=== PATIENT | female | born 1960 | race American Indian/Alaskan Native ===

== ENCOUNTER 2019-08-26 19:50 | Emergency (ER) | payer OTHER ==
[2019-08-26 19:56] VITALS: BP 128/76
[2019-08-26 20:34] LABS: Bacteria,Urine 1+ /HPF (Negative); Bilirubin,Urine NEG (Negative); Blood,Urine NEG (Negative); Color,Urine Yellow (Yellow); Hyaline Casts,Urine 12 /LPF; Mucus,Urine 2+ /HPF; Protein,Urine <15 mg/dL mg/dL (Negative); Urobilinogen,Urine < 2.0 mg/dL (<2.0)
[2019-08-26 21:11] LABS: Basophils % (Auto) 0.3 % (0.0-1.8); Eosinophils # (Auto) 0.1 K/mm3 (0.0-0.4); Eosinophils % (Auto) 1.6 % (0.0-4.3); Hematocrit 48.1 % (30.3-42.9); Hemoglobin 15.9 gm/dl (10.1-14.3); Lymphocytes # (Auto) 1.1 K/mm3 (1.2-5.4); Lymphocytes % (Auto) 21.2 % (13.4-35.0); Mean Corpuscular HGB Conc 33 % (30-34); Mean Corpuscular Volume 89 fl (79-97); Monocytes # (Auto) 0.6 K/mm3 (0.0-0.8); Monocytes % (Auto) 11.1 % (0.0-7.3); Platelet Count 226 K/mm3 (140-440); Red Blood Count 5.42 M/mm3 (3.65-5.03); Red Cell Distribution Width 13.9 % (13.2-15.2)
[2019-08-26] MEDS ORDERED: DIPHENOXYLATE/ATROPINE TAB PO ONE (21:22)
[2019-08-26] MEDS ORDERED: ONDANSETRON 4 MG/2 ML INJ IV ONE (21:22)
[2019-08-26] MEDS ORDERED: LACTATED RINGERS 1,000 ML IV ONE (21:22)
--- NOTE | 2019-08-26 21:32 | Emergency Department Report ---
ED N/V/D HPI - General Chief complaint: Nausea/Vomiting/Diarrhea Stated complaint: DIARRHEA Source: patient Mode of arrival: Ambulatory Limitations: No Limitations - History of Present Illness Initial comments: Patient is a 59-year-old -[place] female with a history of hypertension who presents to the ED with complaint of acute onset persistent diarrhea which she describes as watery for the last 1 week. Patient states that initially her symptoms began with nausea and vomiting and mild diffuse abdominal pain which have since resolved but that diarrhea has persisted despite taking Lomotil that was prescribed by an urgent care provider. Patient denies syncope, chest pain, shortness of breath, abdominal pain, dysuria, urinary frequency and urgency, vaginal bleeding, vaginal discharge, nausea and vomiting, sore throat, cough, nasal and sinus congestion or sore throat. Patient states that she has had multiple episodes of diarrhea in the last 12 hours. MD complaint: nausea, vomiting, diarrhea -: Sudden, week(s) (1) Description of Vomiting: food contents, watery Description of Diarrhea: water Associated Abdominal Pain: No Location: diffuse Radiation: none Severity: moderate Pain Scale: 0 Quality: aching, dull Consistency: intermittent Improves with: none Worsens with: none Context: possible food poisoning Associated Symptoms: denies other symptoms, loss of appetite, malaise, naus ea/vomiting. denies: myalgias, chest pain, cough, diaphoresis, fever/chills, headaches, rash, shortness of breath, syncope, weakness, other - Related Data Previous Rx's Medication Instructions Recorded Last Taken Type Diphenoxylate/Atropine [Lomotil] 2 tab PO Q4H PRN #15 tablet 08/26/19 Unknown Rx Famotidine [Pepcid] 20 mg PO BID #30 tablet 08/26/19 Unknown Rx Allergies Allergy/AdvReac Type Severity Reaction Status Date / Time No Known Allergies Allergy Verified 08/26/19 19:58 ED Review of Systems ROS: Stated complaint: DIARRHEA Other details as noted in HPI Constitutional: denies: chills, fever Eyes: denies: eye pain, eye discharge, vision change ENT: denies: ear pain, throat pain Respiratory: denies: cough, shortness of breath, wheezing Cardiovascular: denies: chest pain, palpitations Endocrine: no symptoms reported Gastrointestinal: nausea, vomiting, diarrhea. denies: abdominal pain Genitourinary: denies: urgency, dysuria, discharge Musculoskeletal: denies: back pain, joint swelling, arthralgia Skin: denies: rash, lesions Neurological: denies: headache, weakness, paresthesias Psychiatric: denies: anxiety, depression Hematological/Lymphatic: denies: easy bleeding, easy bruising ED Past Medical Hx - Past Medical History Previous Medical History?: Yes Hx Hypertension: Yes - Surgical History Past Surgical History?: No - Social History Smoking Status: Never Smoker Substance Use Type: Alcohol - Medications Home Medications: Home Medications Medication Instructions Recorded Confirmed Last Taken Type Diphenoxylate/Atropine [Lomotil] 2 tab PO Q4H PRN #15 tablet 08/26/19 Unknown Rx Famotidine [Pepcid] 20 mg PO BID #30 tablet 08/26/19 Unknown Rx ED Physical Exam - General Limitations: No Limitations General appearance: alert, in no apparent distress - Head Head exam: Present: atraumatic, normocephalic, normal inspection - Eye Eye exam: Present: normal appearance, PERRL, EOMI Pupils: Present: normal accommodation - ENT ENT exam: Present: normal exam, normal orophraynx, mucous membranes moist, TM's normal bilaterally, normal external ear exam - Neck Neck exam: Present: normal inspection, full ROM - Respiratory Respiratory exam: Present: normal lung sounds bilaterally. Absent: respiratory distress, wheezes, rales, rhonchi, chest wall tenderness, accessory muscle use, decreased breath sounds - Cardiovascular Cardiovascular Exam: Present: regular rate, normal rhythm, normal heart sounds. Absent: systolic murmur, diastolic murmur, rubs, gallop - GI/Abdominal GI/Abdominal exam: Present: soft, normal bowel sounds. Absent: tenderness, guarding, rebound, hyperactive bowel sounds, hypoactive bowel sounds, organomegaly - Extremities Exam Extremities exam: Present: normal inspection, full ROM, normal capillary refill - Back Exam Back exam: Present: normal inspection, full ROM. Absent: tenderness, CVA tenderness (R), muscle spasm, paraspinal tenderness, vertebral tenderness - Neurological Exam Neurological exam: Present: alert, oriented X3, CN II-XII intact, normal gait, reflexes normal - Psychiatric Psychiatric exam: Present: normal affect, normal mood - Skin Skin exam: Present: warm, dry, intact, normal color. Absent: rash ED Course Vital Signs 08/26/19 19:55 Temperature 98.0 F Pulse Rate 75 Respiratory 18 Rate Blood Pressure 128/76 O2 Sat by Pulse 98 Oximetry ED Medical Decision Making - Lab Data Result diagrams: 08/26/19 20:28 08/26/19 20:28 - Medical Decision Making This is a 59-year-old -[place] female with a history of hypertension who presents to the ED with complaint of acute onset persistent diarrhea which she describes as watery for the last 1 week. Patient states that initially her symptoms began with nausea and vomiting and mild diffuse abdominal pain which have since resolved but that diarrhea has persisted despite taking Lomotil that was prescribed by an urgent care provider. In the ED, patient is alert and oriented x3 and is not in distress. Lab test results were reviewed and are remarkable for AST of 50 and ALT of 63 and a BUN of 19. The rest of the lab te st results are nonactionable. Patient was treated in the ED for diarrhea and given 1 L lactated Ringer's IV bolus x1. On reevaluation, patient felt better and was discharged home on more antidiarrheal medication and was advised to drink plenty of fluids and follow-up with her primary care physician in 5 to 7 days for reevaluation. Recently patient's symptoms and lab test findings, patient symptoms are likely viral and was advised that the viral process would resolve with time. Patient was otherwise advised to return to the ED immediately if symptoms get worse. - Differential Diagnosis Viral gastroenteritis; GERD; Gastritis Critical care attestation.: If time is entered above; I have spent that time in minutes in the direct care of this critically ill patient, excluding procedure time. ED Disposition Clinical Impression: Viral gastroenteritis, Diarrhea in adult patient, Dehydration Disposition: DC-01 TO HOME OR SELFCARE Is pt being admited?: No Does the pt Need Aspirin: No Condition: Stable Instructions: Dehydration (ED), Gastroenteritis (ED), Acute Diarrhea (ED) Additional Instructions: Lab test results show that your symptoms are likely viral. Therefore take medication as needed for diarrhea, drink plenty of fluids and follow-up with your primary care physician in 5 to 7 days for reevaluation. Return to the ED immediately if symptoms get worse. Prescriptions: Diphenoxylate/Atropine [Lomotil] 2 tab PO Q4H PRN #15 tablet PRN Reason: Diarrhea Famotidine [Pepcid] 20 mg PO BID #30 tablet Referrals: [facility] [Provider Group] - 3-5 Days Time of Disposition: 21:31 Print Language: BAHRAINI
[2019-08-26 21:34] LABS: Albumin 3.9 g/dL (3.9-5); Calcium 9.2 mg/dL (8.4-10.2)
== END 2019-08-26 23:53 | disposition home or self-care (01) ==
LOC: ED 19:50
DX: K21.9 Gastro-esophageal reflux disease without esophagitis (principal); E86.0 Dehydration; I10 Essential (primary) hypertension
CPT/HCPCS: 36415; 80053; 81001; 85025; 87086; 96361; 96374; 99283; J2405; J7120